=== PATIENT | male | born 1950 | race Caucasian/White ===

== ENCOUNTER 2017-02-24 15:20 | Emergency (ER) | payer MEDICARE ==
[2017-02-24 15:20] VITALS: BMI 33.3
[2017-02-24 15:29] VITALS: RESP 20; TEMP 98.5
--- NOTE | 2017-02-24 16:02 | C.PDOC ---
History Of Present Illness 66 year old male presents to the ED with complaints of lower dental pain for four days. The patient reports that the pain is worsened at night and currently has no pain. Patient denies fever, discharge, or facial trauma. Time Seen by Provider: 02/24/17 15:36 Chief Complaint (Nursing): Dental Pain History Per: Patient History/Exam Limitations: no limitations Onset/Duration Of Symptoms: Days (4 days ) Current Symptoms Are (Timing): Gone Pain Scale Rating Of: 1 Quality: Positive for: "Pain" Recent travel outside of the [place]: No Additional History Per: Family (mother ) Past Medical History Reviewed: Historical Data, Nursing Documentation, Vital Signs Vital Signs: Last Vital Signs Temp 98.5 F 02/24/17 15:27 Pulse 89 02/24/17 16:45 Resp 20 02/24/17 16:45 BP 118/74 02/24/17 16:45 Pulse Ox 96 02/24/17 17:06 - Medical History PMH: HTN Surgical History: Cholecystectomy, Coronary Stent Denies: Pacemaker - [facility] Procedures CLOSED ENDOSCOPIC BIOPSY OF LARGE INTESTINE (06/20/14) ENDOSCOPIC BIOPSY OF RECTUM (06/20/14) ESOPHAGOGASTRODUODENOSCOPY [EGD] W/CLOSED BIOPSY (07/17/14) INJECT/INFUSE ELECTROLYT (12/26/14) INJECT/INFUSE NEC (12/26/14) Family History: States: Unknown Family Hx - Social History Hx Alcohol Use: Yes Hx Substance Use: No - Immunization History Hx Tetanus Toxoid Vaccination: No Hx Influenza Vaccination: No Hx Pneumococcal Vaccination: No Review Of Systems Except As Marked, All Systems Reviewed And Found Negative. Constitutional: Negative for: Fever, Chills ENT: Positive for: Other (dental pain ) Physical Exam - Physical Exam Appears: Non-toxic, No Acute Distress Skin: Warm, Dry Head: Atraumatic, Normacephalic, No Tenderness, No Swelling, No Abrasion, No Laceration Eye(s): bilateral: Normal Inspection, PERRL, EOMI Ear(s): Bilateral: Normal Oral Mucosa: Moist Teeth: Caries, Other (small opening at third molar, poor dentition ) Gingiva: Normal Appearing, No Erythema Throat: Normal, No Erythema, No Exudate Neck: Normal ROM, Supple Neurological/Psych: Oriented x3, Normal Speech, Normal Motor, Normal Sensation Gait: Steady ED Course And Treatment O2 Sat by Pulse Oximetry: 96 (RA) Pulse Ox Interpretation: Normal Progress Note: Patient was given Amoxocillin. Disposition - Disposition Referrals: Gregg Baptiste MD [Medical Doctor] - [facility] [Outside] Disposition: HOME/ ROUTINE Disposition Time: 16:37 Condition: GOOD Additional Instructions: Follow up with the medical doctor within 1-2 days. Return if worsened. Prescriptions: Amoxicillin [Amoxil 500 mg Cap] 500 mg PO TID #29 cap Ibuprofen [Motrin] 600 mg PO TID #21 tab Instructions: Dental Caries (ED) Forms: Pairin (Polish) Print Language: [place] - Clinical Impression Clinical Impression: Dental caries - PA / EDUCATION MANAGERS / Resident Statement MD/DO has reviewed & agrees with the documentation as recorded. - Scribe Statement The provider has reviewed the documentation as recorded by the Scribe Marita Rowland All medical record entries made by the Scribe were at my direction and personally dictated by me. I have reviewed the chart and agree that the record accurately reflects my personal performance of the history, physical exam, medical decision making, and the department course for this patient. I have also personally directed, reviewed, and agree with the discharge instructions and disposition.
[2017-02-24 16:48] VITALS: BP 118/74; PULSE 89
[2017-02-24 16:50] VITALS: O2SAT 96
== END 2017-02-24 16:46 | disposition home or self-care (01) ==
LOC: C.ER 15:20
DX: K02.9 Dental caries, unspecified (principal)